=== PATIENT | female | born 1980 | race Two or more races ===

== ENCOUNTER 2019-02-01 17:30 | Emergency (ER) | payer SELFPAY ==
[~2019-02-01] VITALS: Ht 157.5 cm; Wt 147.4 kg
[~2019-02-01 17:30] MED LIST: CYCLOBENZAPRINE10 MG ORAL; IBUPROFEN600 MG ORAL; NKM
--- NOTE | 2019-02-01 17:57 | NUR ---
ED Nurse Note: Pt walked in due to left side body numbness and left neck pain that radiates to her shoulder x 1 week. Denies injury. Pt states she has type 2 DM and has not been taking medications for it. Pt is AAO x4 ambulates with a steady gait with unlabored breathing. No slurring of speech or facial drooping.
[2019-02-01] MEDS ORDERED: Ketorolac 30mg Inj IV ONE (18:15)
--- NOTE | 2019-02-01 18:18 | Emergency Room Report ---
History of Present Illness General Chief Complaint: General Complaint Source: Patient Present Illness HPI Patient presents with left-sided facial left upper arm numbness associated with a headache yesterday. The headache is now better at this time. She did not take any medications. She is had intermittent headaches but never numbness like this. She feels some tingling of her face still but there is no weakness. Yesterday she had weakness of the arm also. She has had nausea yesterday but is resolved. No change in her bowels. She is feels some pinching in the left side of her chest. She also complains of left trapezius pain that radiates up into her neck and head that is occasional. The patient has a history of diabetes. She stopped taking medication a year ago. Her Accu-Chek yesterday midday was 220. At 11:00 her Accu-Chek was around 400. She has had polyuria and polydipsia. The patient denies fevers or chills. There is no dysuria. She is status post tubal ligation. There are no skin rashes. She denies anxiety. She does not smoke. No alcohol. The patient is right-handed Allergies: Coded Allergies: No Known Allergies (Unverified , 10/07/13) Patient History Past Medical History: see triage record Social History: Denies: smoking, alcohol use, drug use Social History Narrative Works doing food preparation. Youngest child is too old this is 9 and she is . Last Menstrual Period: 12/2018 Now: No - tubal ligation 2010 : 2 Para: 2 Reviewed Nursing Documentation: PMH: Agreed; PSxH: Agreed Nursing Documentation-PMH Past Medical History: No Stated History Hx Diabetes: Yes - Type II Review of Systems All Other Systems: negative except mentioned in HPI Physical Exam Vital Signs Date Time Temp Pulse Resp B/P (MAP) Pulse Ox O2 Delivery O2 Flow Rate FiO2 02/01/19 17:47 98.1 71 18 103/60 (74) 98 Room Air Sp02 EP Interpretation: reviewed, normal General Appearance: well appearing, no apparent distress, GCS 15, obese Head: normocephalic, atraumatic Eyes: bilateral eye normal inspection ENT: moist mucus membranes Neck: full range of motion, supple Respiratory: lungs clear, normal breath sounds, other - Left trapezius muscle tenderness when pushed radiates up into the neck area Cardiovascular #1: regular rate, rhythm Cardiovascular #2: 2+ radial (R), 2+ radial (L) Gastrointestinal: normal inspection, normal bowel sounds, non tender, no mass, non-distended Musculoskeletal: back normal, gait/station normal, normal range of motion Neurologic: alert, oriented x3, compressor battery pellets III-XII nml as tested, motor strength/tone normal, DTRs symmetric, sensory intact - Subjective difference left face, cerebellar normal, normal gait, speech normal Psychiatric: mood/affect normal Reflexes: 2+ bicep (L), 2+ knee (R), 2+ knee (L) Skin: no rash Medical Decision Making Diagnostic Impression: Primary Impression: Hyperglycemia Additional Impressions: Strain of left trapezius muscle Qualified Codes: S46.812A - Strain of other muscles, fascia and tendons at shoulder and upper arm level, left arm, initial encounter Paresthesia ER Course Patient presents with headache and left-sided numbness that improved. Differential includes TIA, hyperglycemia, electrolyte imbalance, variant migraine amongst others. Patient will be evaluated with EKG, chest x-ray, CT the head and labs. The patient will receive IV hydration. An Accu-Chek will be obtained. The patient is placed on a youth nutritional monitor EKG with normal sinus rhythm normal EKG rate of 61. CT of the head negative. Labs with glucose of 222. She has no urinary symptoms in the urine is suspected to be contaminated as there are moderate squamous cells. Improved with treatment. Discussed the need for diabetic control. Also discussed the need for follow- up. She has no doctor at this time. She will find one. Antibiotics not indicated. Final blood glucose 190. Patient stable for outpatient observation and treatment. Laboratory Tests Test 02/01/19 18:16 02/01/19 18:36 White Blood Count 10.1 K/UL (4.8-10.8) Red Blood Count 4.80 M/UL (4.20-5.40) Hemoglobin 13.1 G/DL (12.0-16.0) Hematocrit 39.6 % (37.0-47.0) Mean Corpuscular Volume 82 FL (80-99) Mean Corpuscular Hemoglobin 27.3 PG (27.0-31.0) Mean Corpuscular Hemoglobin Concent 33.1 G/DL (32.0-36.0) Red Cell Distribution Width 11.1 % (11.6-14.8) L Platelet Count 261 K/UL (150-450) Mean Platelet Volume 7.8 FL (6.5-10.1) Neutrophils (%) (Auto) 61.1 % (45.0-75.0) Lymphocytes (%) (Auto) 31.8 % (20.0-45.0) Monocytes (%) (Auto) 4.7 % (1.0-10.0) Eosinophils (%) (Auto) 1.7 % (0.0-3.0) Basophils (%) (Auto) 0.8 % (0.0-2.0) Prothrombin Time 9.8 SEC (9.30-11.50) Prothrombin Time INR 0.9 (0.9-1.1) PTT 28 SEC (23-33) Sodium Level 136 MMOL/L (136-145) Potassium Level 3.8 MMOL/L (3.5-5.1) Chloride Level 104 MMOL/L (98-107) Carbon Dioxide Level 28 MMOL/L (21-32) Anion Gap 5 mmol/L (5-15) Blood Urea Nitrogen 13 mg/dL (7-18) Creatinine 1.0 MG/DL (0.55-1.30) Estimate Glomerular Filtration Rate > 60 mL/min (>60) Glucose Level 222 MG/DL (74-106) H Calcium Level 9.3 MG/DL (8.5-10.1) Total Bilirubin 0.7 MG/DL (0.2-1.0) Aspartate Amino Transferase (AST) 26 U/L (15-37) Alanine Aminotransferase (ALT) 46 U/L (12-78) Alkaline Phosphatase 107 U/L (46-116) Total Creatine Kinase 104 U/L (26-308) Troponin I 0.000 ng/mL (0.000-0.056) Pro-B-Type Natriuretic Peptide 92 pg/mL (0-125) Total Protein 7.8 G/DL (6.4-8.2) Albumin 3.6 G/DL (3.4-5.0) Globulin 4.2 g/dL Albumin/Globulin Ratio 0.9 (1.0-2.7) L Urine Color Pale yellow Urine Appearance Slightly cloudy Urine pH 6 (4.5-8.0) Urine Specific [place] 1.020 (1.005-1.035) Urine Protein Negative (NEGATIVE) Urine Glucose (UA) Negative (NEGATIVE) Urine Ketones Negative (NEGATIVE) Urine Blood 1+ (NEGATIVE) H Urine Nitrite Negative (NEGATIVE) Urine Bilirubin Negative (NEGATIVE) Urine Urobilinogen Normal MG/DL (0.0-1.0) Urine Leukocyte Esterase Negative (NEGATIVE) Urine RBC 2-4 /HPF (0 - 2) H Urine WBC 10-15 /HPF (0 - 2) H Urine Squamous Epithelial Cells Moderate /LPF (NONE/OCC) H Urine Bacteria Moderate /HPF (NONE) H Urine HCG, Qualitative Negative (NEGATIVE) EKG Diagnostic Results Rate: normal Rhythm: NSR ST Segments: no acute changes Rhythm Strip Diag. Results EP Interpretation: yes Rhythm: NSR, no PVC's, no ectopy CT/MRI/US Diagnostic Results CT/MRI/US Diagnostic Results : Imaging Test Ordered: Head Impression Normal Last Vital Signs Date Time Temp Pulse Resp B/P (MAP) Pulse Ox O2 Delivery O2 Flow Rate FiO2 02/01/19 21:10 98.1 59 16 108/55 100 Room Air Status: improved Disposition: HOME, SELF-CARE Condition: Improved Scripts Acetaminophen (Tylenol) 325 Mg Tablet 650 MG ORAL Q6H PRN for Prn Pain/Headache/Temp > 101, #30 TAB 0 Refills Prov: Pablo Stockton MD 02/01/19 Multivitamins* (MULTIVITAMINS*) 1 Each Tablet 1 TAB ORAL DAILY, #30 TAB 0 Refills Prov: Pablo Stockton MD 02/01/19 Metformin Hcl* (METFORMIN HCL*) 500 Mg Tablet 500 MG ORAL TWICE A DAY, #60 TAB Prov: Pablo Stockton MD 02/01/19 Pablo Stockton MD Feb 01, 2019 18:18
--- NOTE | 2019-02-01 18:37 | NUR ---
ED Nurse Note: Collected blood/urine then sent.
--- NOTE | 2019-02-01 18:44 | NUR ---
ED Nurse Note: Pt taken to CT and stable.
[2019-02-01 19:05] LABS: BASOPHILS % (AUTO) 0.8 % (0.0-2.0); EOSINOPHILS % (AUTO) 1.7 % (0.0-3.0); HEMATOCRIT 39.6 % (37.0-47.0); HEMOGLOBIN 13.1 G/DL (12.0-16.0); LYMPHOCYTES % (AUTO) 31.8 % (20.0-45.0); MEAN CORPUSCULAR VOLUME 82 FL (80-99); MONOCYTES % (AUTO) 4.7 % (1.0-10.0); NEUTROPHILS % (AUTO) 61.1 % (45.0-75.0); PLATELET COUNT 261 K/UL (150-450); RED CELL DISTRIBUTION WIDTH 11.1 % (11.6-14.8); WHITE BLOOD COUNT 10.1 K/UL (4.8-10.8)
[2019-02-01 19:09] LABS: APPEARANCE,URINE SLIGHTLY CLOUDY; BILIRUBIN, URINE NEGATIVE (NEGATIVE); COLOR,URINE PALE YELLOW; GLUCOSE, URINE (UA) NEGATIVE (NEGATIVE); KETONES,URINE NEGATIVE (NEGATIVE); LEUKOCYTE ESTERASE ,URINE NEGATIVE (NEGATIVE); NITRITE,URINE NEGATIVE (NEGATIVE); PH,URINE 6 (4.5-8.0); PROTEIN,URINE NEGATIVE (NEGATIVE); UROBILINOGEN,URINE NORMAL MG/DL (0.0-1.0)
--- NOTE | 2019-02-01 19:10 | Diagnostic Imaging Report ---
EXAM: XR Chest, 1 View CLINICAL HISTORY: H A TECHNIQUE: Frontal view of the chest. COMPARISON: No relevant prior studies available. FINDINGS: Lungs: Low lung volumes. No consolidation. Pulmonary venous congestion. No interstitial edema. Pleural space: Unremarkable. No pneumothorax. Heart: The heart is mildly prominent which is favored projectional. Mediastinum: Unremarkable. Bones joints: Unremarkable. IMPRESSION: No acute findings.
[2019-02-01 19:14] LABS: INR 0.9 (0.9-1.1)
[2019-02-01 19:16] LABS: ANION GAP 5 mmol/L (5-15); BLOOD UREA NITROGEN 13 mg/dL (7-18); CALCIUM 9.3 MG/DL (8.5-10.1); CARBON DIOXIDE 28 MMOL/L (21-32); CHLORIDE 104 MMOL/L (98-107); POTASSIUM 3.8 MMOL/L (3.5-5.1); SODIUM 136 MMOL/L (136-145)
[2019-02-01 19:26] LABS: ALANINE AMINOTRANSFERASE 46 U/L (12-78); ALBUMIN 3.6 G/DL (3.4-5.0); ALBUMIN/GLOBULIN RATIO 0.9 (1.0-2.7); ALKALINE PHOSPHATASE 107 U/L (46-116); ASPARTATE AMINO TRANSFERASE 26 U/L (15-37); BILIRUBIN,TOTAL 0.7 MG/DL (0.2-1.0); CREATINE KINASE 104 U/L (26-308)
--- NOTE | 2019-02-01 19:33 | NUR ---
HAND-OFF: Report given to Swati MALAGON.
--- NOTE | 2019-02-01 19:40 | Diagnostic Imaging Report ---
EXAM: CT Head Without Intravenous Contrast CLINICAL HISTORY: H A TECHNIQUE: Axial computed tomography images of the head brain without intravenous contrast. CTDI is 60 mGy and DLP is 1352.1 mGy-cm. One or more of the following dose reduction techniques were used: automated exposure control, adjustment of the mA and or kV according to patient size, use of iterative reconstruction technique. COMPARISON: Head CT 11 06 2014 FINDINGS: Brain: No hemorrhage, extra-axial fluid collection, mass effect, or edema. No grossly evident acute ischemic infarct. Ventricles: Unremarkable. No ventriculomegaly. Bones joints: Unremarkable. No acute fracture. Soft tissues: Unremarkable. Sinuses: Unremarkable as visualized. No acute sinusitis. Mastoid air cells: Unremarkable as visualized. No mastoid effusion. IMPRESSION: 1. No acute intracranial abnormality.
[2019-02-01 20:29] VITALS: BP 108/55
--- NOTE | 2019-02-01 20:50 | NUR ---
ED Nurse Note: Patient is resting comfortably with at bedside, will continue to monitor for discharge.
[2019-02-01] MEDS ORDERED: MULTIVITAMINS1 EAC2 ORAL (20:51)
[2019-02-01] MEDS ORDERED: METFORMIN HCL500 M1 ORAL (20:51)
[2019-02-01] MEDS ORDERED: TYLENOL325 MG ORAL (20:51)
[2019-02-01 21:10] VITALS: BP 108/55
--- NOTE | 2019-02-01 21:10 | NUR ---
ED Nurse Note: Patient cleared for discharge, verbalized understanding of discharge instructions. Patient is alert, oriented X4, and has no s/s/ of acute distress. Patient expressed need for proper diabetic diet information, rendered by ERMD. Patient IV removed, ID band removed, Patient departed with all belongings accompanied by her significant other.
[2019-02-03] MEDS ORDERED: NITROFURANTOIN100 M2 ORAL (15:37)
--- NOTE | 2019-02-04 14:20 | Cardiology Report ---
APPROVED REPORT EKG Measurement Heart [id number] OR [id number] Normal sinus rhythm Normal ECG
== END 2019-02-01 21:10 | disposition home or self-care (01) ==
LOC: EMR 18:36
DX: R20.2 Paresthesia of skin (principal); S46.812A Strain of other muscles, fascia and tendons at shoulder and upper arm level, left arm, initial encounter; R51 Headache; R82.71 Bacteriuria; B96.20 Unspecified Escherichia coli [E. coli] as the cause of diseases classified elsewhere; R35.8 Other polyuria; E11.65 Type 2 diabetes mellitus with hyperglycemia; Z98.51 Tubal ligation status; X58.XXXA Exposure to other specified factors, initial encounter; Y92.9 Unspecified place or not applicable
CPT/HCPCS: 36415; 70450; 71045; 80053; 81003; 81025; 82550; 82962; 83880; 84484; 85025; 85610; 85730; 87086; 87181; 93005; 96361; 96374; 99284; J1885